=== PATIENT | female | born 1990 | race Caucasian/White ===

== ENCOUNTER 2019-03-06 05:26 | Emergency (ER) | payer BC, OTHER ==
[~2019-03-06] VITALS: Ht 162 cm; Wt 81.0 kg
--- NOTE | 2019-03-06 05:49 | ED Chest Pain ---
General Stated Complaint: CHEST PAIN/SOA Source: patient (HANH RIOS MD) History of Present Illness Date Seen by Provider: Mar 06, 2019 Time Seen by Provider: 05:27 Initial Comments 29-year-old female presenting to the ER room 1 with complaints of chest pain visits been present since last night. She states that she has a pressure and sometimes sharp pain in the middle of her chest going into her back. It was worse this morning when she woke up and has continued when she got to work. She has that last night when she was going to bed but it had settled down enough that she was able to fall asleep. It was still there when she woke up and continued after getting to work. 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 She has not tried taking anything for the pain. Activity seemed to be making the pain worse. She has some mild nausea. She denies having pain like this before. She has a history of hypertension. (HANH RIOS MD) Allergies and Home Medications Allergies Coded Allergies: cetirizine (Verified Allergy, Unknown, 03/06/19) Home Medications Ibuprofen 800 Mg Tablet, 800 MG PO Q8H PRN for PAIN Prescribed by: SHAKA TIDWELL on 03/06/19 0718 Patient Home Medication List Home Medication List Reviewed: Yes (HANH RIOS MD) Review of Systems Review of Systems Constitutional: No chills, No diaphoresis, No fever EENTM: No Symptoms Reported Respiratory: Shortness of Air, SOA With Exertion, SOA at Rest Cardiovascular: Chest Pain (pressure in the middle of her chest with sharp pains going into her back at times) Gastrointestinal: Nausea; Denies Vomiting Genitourinary: No Symptoms Reported Musculoskeletal: no symptoms reported Skin: no symptoms reported Psychiatric/Neurological: Anxiety Endocrine: No Symptoms Reported (HANH RIOS MD) Past Eevovds-Xsrrjq-Aicncp Hx Past Med/Social Hx: Reviewed Nursing Past Med/Soc Hx (HANH RIOS MD) Past Medical History Abdominal, Section, Gallbladder Hypertension Psychosocial: Yes Anxiety, Depression (HANH RIOS MD) Physical Exam Vital Signs Vital Signs - First Documented 03/06/19 05:30 Temp 36.7 Pulse 80 Resp 20 B/P (MAP) 127/101 (110) Pulse Ox 99 O2 Delivery Room Air (SHAKA TIDWELL MD) Vital Signs Capillary Refill : (HANH RIOS MD) Height, Weight, BMI Height: '" Weight: lbs. oz. kg; BMI Method: General Appearance: No Apparent Distress, WD/WN, Obese HEENT: PERRL/EOMI, Normal ENT Inspection, Pharynx Normal Neck: Full Range of Motion, Normal Inspection, Non Tender, Supple; No Carotid Bruit Respiratory: Chest Non Tender, Lungs Clear, Normal Breath Sounds, No Accessory Muscle Use, No Respiratory Distress Cardiovascular: Regular Rate, Rhythm, Normal Peripheral Pulses Gastrointestinal: Normal Bowel Sounds, No Pulsatile Mass, Non Tender, Soft Extremity: Normal Capillary Refill, Normal Inspection, No Pedal Edema, Other (tenderness to the right calf) Neurologic/Psychiatric: Alert, Oriented x3, No Motor/Sensory Deficits Skin: Normal Color, Warm/Dry (HANH RIOS MD) Progress/Results/Core Measures Results/Orders Lab Results Laboratory Tests Test 03/06/19 05:40 Range/Units White Blood Count 7.4 4.3-11.0 10^3/uL Red Blood Count 4.57 4.35-5.85 10^6/uL Hemoglobin 14.2 11.5-16.0 G/DL Hematocrit 45 35-52 % Mean Corpuscular Volume 99 80-99 FL Mean Corpuscular Hemoglobin 31 25-34 PG Mean Corpuscular Hemoglobin Concent 31 L 32-36 G/DL Red Cell Distribution Width 12.2 10.0-14.5 % Platelet Count 203 130-400 10^3/uL Mean Platelet Volume 11.5 H 7.4-10.4 FL Neutrophils (%) (Auto) 60 42-75 % Lymphocytes (%) (Auto) 31 12-44 % Monocytes (%) (Auto) 5 0-12 % Eosinophils (%) (Auto) 3 0-10 % Basophils (%) (Auto) 1 0-10 % Neutrophils # (Auto) 4.4 1.8-7.8 X 10^3 Lymphocytes # (Auto) 2.3 1.0-4.0 X 10^3 Monocytes # (Auto) 0.4 0.0-1.0 X 10^3 Eosinophils # (Auto) 0.2 0.0-0.3 10^3/uL Basophils # (Auto) 0.1 0.0-0.1 10^3/uL Sodium Level 138 135-145 MMOL/L Potassium Level 4.1 3.6-5.0 MMOL/L Chloride Level 101 98-107 MMOL/L Carbon Dioxide Level 22 21-32 MMOL/L Anion Gap 15 H 5-14 MMOL/L Blood Urea Nitrogen 11 7-18 MG/DL Creatinine 0.60 0.60-1.30 MG/DL Estimat Glomerular Filtration Rate > 60 BUN/Creatinine Ratio 18 Glucose Level 106 H 70-105 MG/DL Calcium Level 9.1 8.5-10.1 MG/DL Corrected Calcium 9.2 8.5-10.1 MG/DL Magnesium Level 2.1 1.6-2.4 MG/DL Total Bilirubin 0.5 0.1-1.0 MG/DL Aspartate Amino Transf (AST/SGOT) 23 5-34 U/L Alanine Aminotransferase (ALT/SGPT) 16 0-55 U/L Alkaline Phosphatase 70 40-136 U/L Troponin I < 0.30 <0.30 NG/ML Total Protein 7.1 6.4-8.2 GM/DL Albumin 3.9 3.2-4.5 GM/DL Lipase 19 8-78 U/L (SHAKA TIDWELL MD) My Orders Orders - SHAKA TIDWELL MD Fibrin Degradation Products (03/06/19 06:07) Ketorolac Injection (Toradol Injection) (03/06/19 06:30) Ondansetron Oral Dissolve Tab (Zofran (03/06/19 06:30) Ondansetron Oral Dissolve Tab (Zofran (03/06/19 06:26) Ondansetron Oral Dissolve Tab (Zofran (03/06/19 06:34) (SHAKA TIDWELL MD) Medications Given in ED Current Medications Medications Dose Ordered Sig/Joy Route Start Time Stop Time Status Last Admin Dose Admin Ketorolac Tromethamine 60 mg ONCE ONCE IM 03/06/19 06:30 03/06/19 06:32 DC 03/06/19 06:42 60 MG (SHAKA TIDWELL MD) Vital Signs/I&O 03/06/19 05:30 Temp 36.7 Pulse 80 Resp 20 B/P (MAP) 127/101 (110) Pulse Ox 99 O2 Delivery Room Air (SHAKA TIDWELL MD) Progress Progress Note : Time: 05:26 Progress Note Obtain blood work as well as electrocardiogram and chest x-ray to evaluate from a cardiac standpoint. Patient denies any risk factors for blood clots such as long travel, recent surgery, or previous blood clots. She does have some pain in her right calf and does have an implanted contraceptive in her arm. Try Zofran for nausea, Aspirin 324 mg for chest pain, Will try a 1/2 inch of nitro paste for her pain as well. Care passed to Dr. Tidwell at 0600 for further e valuation and review of testing and to determine final disposition. (HANH RIOS MD) Progress Note : Progress Note 06:00 Dr Tidwell all above appreciated 29 yo female with several hrs of central cp rad to back no hx cardiac or pulmonary no fever or cough no fall or injury no abd pain denies sx's typical of GERD pt claims SOB but no objective indication of such VS normal pt with flat affect, whispers no apparent distress exam normal except for presence of chest wall tenderness EKG is normal sinus @68 will give toradol for pain, awaiting work up to exclude serous etiology CXR is normal Hb 14.2 WBC7,400 CMP lipase troponin all neg/normal after multiple attempts, staff not able to get coag tube to check d-dimer pt, however, has not clinically demonstrated any objective signs to suggest PE, feel it unlikely toradol IM was somewhat helpful, pt has chest wall tenderness to palp, improved O2 sats 99-100 on room air, with NO evidence of resp difficulty (SHAKA TIDWELL MD) Initial ECG Impression Date: Mar 06, 2019 Initial ECG Impression Time: 05:29 Initial ECG Rate: 68 Initial ECG Rhythm: Normal Sinus Initial ECG Comparisson: No Previous ECG Available Comment Sinus rhythm with a heart rate of 68 bpm. UT interval 152 ms with a QT interval of 416 ms and a QT corrected interval 443 ms. There is no acute ST elevation. She has no prior tracing for comparison. (HANH RIOS MD) Transfer of Care Time: 06:00 Care transferred to: Dr. Tidwell (HANH RIOS MD) Departure Impression Primary Impression: Substernal chest pain Additional Impression: Chest wall pain Disposition: 01 HOME, SELF-CARE Condition: Improved Departure-Patient Inst. Decision time for Depature: 07:15 (SHAKA TIDWELL MD) Patient Instructions: Chest Pain (DC) Scripts Ibuprofen (Ibuprofen) 800 Mg Tablet 800 MG PO Q8H PRN for PAIN, #21 TAB 0 Refills Prov: SHAKA TIDWELL MD 03/06/19 Work/School Note: Family Work Note HANH RIOS MD Mar 06, 2019 05:49 SHAKA TIDWELL MD Mar 06, 2019 06:20
[2019-03-06] MEDS ORDERED: ASPIRIN 81 MG CHEW (CHILDREN'S ASA) PO STA (05:50)
[2019-03-06] MEDS ORDERED: NITROGLYCERIN 2% OINT 1 GM UNIT DOSE PACKET TOP STA (05:50)
[2019-03-06] MEDS ORDERED: ONDANSETRON 4 MG/2 ML (SDV) Z0FRAN IVP STA (05:50)
[2019-03-06] MEDS ORDERED: KETOROLAC 30 MG/ML VIAL IVP ONE (06:15)
[2019-03-06] MEDS ORDERED: ONDANSETRON 4 MG (ZOFRAN) ORAL DISSOLVE TAB ONE (06:26)
[2019-03-06] MEDS ORDERED: ONDANSETRON 4 MG (ZOFRAN) ORAL DISSOLVE TAB PO STA ×2 (06:30→06:34)
[2019-03-06] MEDS ORDERED: KETOROLAC 60 MG/2 ML VIAL IM ONE (06:30)
[2019-03-06 06:43] LABS: HEMATOCRIT 45 % (35-52); HEMOGLOBIN 14.2 G/DL (11.5-16.0); MEAN CORPUSCULAR HEMOGLOBIN 31 PG (25-34); MEAN CORPUSCULAR HGB CONC 31 G/DL (32-36); MEAN CORPUSCULAR VOLUME 99 FL (80-99); RED CELL DISTRIBUTION WIDTH 12.2 % (10.0-14.5); WHITE BLOOD COUNT 7.4 10^3/uL (4.3-11.0)
[2019-03-06 06:44] LABS: BASOPHILS # (AUTO) 0.1 10^3/uL (0.0-0.1); BASOPHILS % (AUTO) 1 % (0-10); EOSINOPHILS # (AUTO) 0.2 10^3/uL (0.0-0.3); EOSINOPHILS % (AUTO) 3 % (0-10); LYMPHOCYTES # (AUTO) 2.3 X 10^3 (1.0-4.0); LYMPHOCYTES % (AUTO) 31 % (12-44); MEAN PLATELET VOLUME 11.5 FL (7.4-10.4); MONOCYTES # (AUTO) 0.4 X 10^3 (0.0-1.0); MONOCYTES % (AUTO) 5 % (0-12); NEUTROPHILS # (AUTO) 4.4 X 10^3 (1.8-7.8); NEUTROPHILS % (AUTO) 60 % (42-75); PLATELET COUNT 203 10^3/uL (130-400)
--- NOTE | 2019-03-06 06:49 | Diagnostic Imaging Report ---
INDICATION: Chest pain. No prior examinations are available for comparison. FINDINGS: The heart size, mediastinal configuration, and pulmonary vascularity are within normal limits. There is no pleural effusion, pneumothorax, or pneumonia. The osseous structures are unremarkable. IMPRESSION: No acute cardiopulmonary abnormality. Dictated by: Dictated on workstation # [id number]
[2019-03-06 06:52] LABS: BILIRUBIN,TOTAL 0.5 MG/DL (0.1-1.0); CALCIUM 9.1 MG/DL (8.5-10.1); CARBON DIOXIDE 22 MMOL/L (21-32); CHLORIDE 101 MMOL/L (98-107); MAGNESIUM 2.1 MG/DL (1.6-2.4); POTASSIUM 4.1 MMOL/L (3.6-5.0); SODIUM 138 MMOL/L (135-145); TOTAL PROTEIN 7.1 GM/DL (6.4-8.2)
[2019-03-06 06:55] LABS: GLUCOSE 106 MG/DL (70-105)
[2019-03-06 06:57] LABS: ALANINE AMINOTRANSFERASE 16 U/L (0-55); ALBUMIN 3.9 GM/DL (3.2-4.5); ALKALINE PHOSPHATASE 70 U/L (40-136); BUN/CREATININE RATIO 18; GFR ESTIMATED > 60; LIPASE 19 U/L (8-78)
[2019-03-06] MEDS ORDERED: IBUP-1780 PO (07:18)
[2019-03-06 07:22] VITALS: BP 135/72
== END 2019-03-06 07:24 | disposition home or self-care (01) ==
LOC: ER FS 05:30
DX: R07.2 Precordial pain (principal); I10 Essential (primary) hypertension; F41.9 Anxiety disorder, unspecified; F32.9 Major depressive disorder, single episode, unspecified; Z88.8 Allergy status to other drugs, medicaments and biological substances
CPT/HCPCS: 71045; 80053; 83690; 83735; 83880; 84484; 93005; 93041

== ENCOUNTER 2019-09-08 14:00 | Emergency (ER) | payer BC ==
[~2019-09-08] VITALS: Ht 161 cm; Wt 104.7 kg
[~2019-09-08 14:00] MED LIST: IBUP-1780 PO
--- NOTE | 2019-09-08 14:16 | ED General ---
General Stated Complaint: NECK SWELLING; BLURRY VISION History of Present Illness Date Seen by Provider: Sep 08, 2019 Time Seen by Provider: 14:15 Initial Comments Patient presenting to emergency department for evaluation of migraine headache and right-sided blurry vision has been going on since yesterday. She says that she does have a history of migraine headaches and takes Topamax but has not been helping. She usually gets a shot from her primary care provider that helps however her primary care provider would not see her and she had blurred vision. She denies ever having atypical migraines before in the past with neurologic symptoms. She has nausea and photophobia but no vomiting fevers chills neck stiffness or unilateral weakness numbness or tingling. She is in no obvious distress with normal vital signs. Allergies and Home Medications Allergies Coded Allergies: cetirizine (Verified Allergy, Unknown, 03/06/19) Home Medications Ibuprofen 800 Mg Tablet, 800 MG PO Q8H PRN for PAIN Prescribed by: SHAKA CLEMENTS on 03/06/19 3842 Patient Home Medication List Home Medication List Reviewed: Yes Review of Systems Review of Systems Constitutional: no symptoms reported EENTM: blurred vision Respiratory: no symptoms reported Cardiovascular: no symptoms reported Gastrointestinal: nausea Genitourinary: no symptoms reported Musculoskeletal: no symptoms reported Skin: no symptoms reported Psychiatric/Neurological: Headache All Other Systems Reviewed Negative Unless Noted: Yes Past Wlahuwv-Eqcklo-Ycumnj Hx Patient Social History 2nd Hand Smoke Exposure: No Recent Foreign Travel: No Contact w/Someone Who Travel: No Recent Hopitalizations: No Past Medical History Surgeries: Yes Abdominal, Section, Gallbladder Respiratory: No Cardiac: Yes Hypertension Neurological: No Genitourinary: No Gastrointestinal: No Musculoskeletal: No Endocrine: No HEENT: No Cancer: No Psychosocial: Yes Anxiety, Depression Integumentary: No Blood Disorders: No Physical Exam Vital Signs Vital Signs - First Documented 09/08/19 14:05 Temp 36.4 Pulse 91 Resp 16 B/P (MAP) 132/86 (101) Pulse Ox 96 O2 Delivery Room Air Capillary Refill : Height, Weight, BMI Height: '" Weight: lbs. oz. 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 as Tested Skin: Warm/Dry Progress/Results/Core Measures Suspected Sepsis SIRS Temperature: Pulse: Respiratory Rate: Blood Pressure / Mean: Results/Orders My Orders Orders - DIMITRY CARTER DO Ct Head Wo (09/08/19 14:24) Ketorolac Injection (Toradol Injection) (09/08/19 14:30) Diphenhydramine Injection (Benadryl Inje (09/08/19 14:30) Promethazine Injection (Phenergan Injec (09/08/19 14:30) Medications Given in ED Current Medications Medications Dose Ordered Sig/Joy Route Start Time Stop Time Status Last Admin Dose Admin Diphenhydramine HCl 50 mg ONCE ONCE IM 09/08/19 14:30 09/08/19 14:31 DC 09/08/19 14:39 50 MG Ketorolac Tromethamine 60 mg ONCE ONCE IM 09/08/19 14:30 09/08/19 14:31 DC 09/08/19 14:39 60 MG Promethazine HCl 25 mg ONCE ONCE IM 09/08/19 14:30 09/08/19 14:31 DC 09/08/19 14:39 25 MG Vital Signs/I&O 09/08/19 14:05 Temp 36.4 Pulse 91 Resp 16 B/P (MAP) 132/86 (101) Pulse Ox 96 O2 Delivery Room Air Capillary Refill : Progress Note : Progress Note Patient with likely atypical migraine and I told her I could do the CT scan here but it would not be diagnostic for acute CVA or other acute neurologic condition as she needs to have an MRI and likely other studies done to rule out a stroke. I told her I would need to transfer her to another facility to get this workup done and she refused and she thinks this blurred vision is related to her migraine headache only. She verbalized understanding of my concerns and accepted the risks of and disability including vision loss without proper evaluation. Patient's head CT is negative and her headache almost completely resolved with intramuscular Toradol Benadryl and Phenergan and she says her blurred vision is getting better as well. Given she appears well with normal vital signs benign physical exam workup and is not wanting any further evaluation she'll be discharged in stable condition told to take her Topamax follow with her primary care provider and come back to the ED sooner with worsening pain neurologic changes other general concerns. Patient aware and agreeable with plan and verbalized understanding of the above instructions. Departure Impression Primary Impression: Migraine Additional Impression: Vision changes Disposition: 01 HOME, SELF-CARE Condition: Stable Departure-Patient Inst. Referrals: [facility] ([place]) Primary Care Physician NANDO CLARK APRN (Family) Primary Care Physician Patient Instructions: Migraine Headache (DC) Scripts Ondansetron (Ondansetron Odt) 4 Mg Tab.rapdis 4 MG PO Q6H PRN for NAUSEA/VOMITING-1ST LINE, #10 TAB Prov: DIMITRY CARTER DO 09/08/19 DIMITRY CARTER DO Sep 08, 2019 14:15
[2019-09-08] MEDS ORDERED: diphenhydrAMINE 50 MG/ML INJ (BENADRYL) IM ONE (14:30)
[2019-09-08] MEDS ORDERED: PROMETHAZINE INJ 25 MG/ML (PHENERGAN) AMP IM ONE (14:30)
[2019-09-08] MEDS ORDERED: KETOROLAC 60 MG/2 ML VIAL IM ONE (14:30)
--- NOTE | 2019-09-08 15:24 | Diagnostic Imaging Report ---
PROCEDURE: CT head without contrast. TECHNIQUE: Multiple contiguous axial images were obtained through the brain without the use of intravenous contrast. Auto Exposure Controls were utilized during the CT exam to meet ALARA standards for radiation dose reduction. INDICATION: Blurred vision since this morning as well as headache. COMPARISON: No prior studies are available for comparison. FINDINGS: The ventricles and sulci are within normal limits. No sulcal effacement or midline shift is identified. No acute intra-axial or extra-axial hemorrhage is detected. Cisterns are patent. Visualized paranasal sinuses are clear. IMPRESSION: No acute intracranial process is detected. Dictated by: Dictated on workstation # [id number]
[2019-09-08] MEDS ORDERED: ONDA4TAB11 PO (16:17)
[2019-09-08 16:26] VITALS: BP 111/62
--- OUTSIDE RECORDS SUMMARY | 2019-09-08 16:29 | XMS REPORT | Continuity of Care Document ---
Author Organization Unknown Address Unknown Phone Unavailable Allergies Active Description Code Type Severity Reaction Onset Reported/Identified Relationship to Patient Clinical Status Yes cetirizine [id number] Drug Allerg y Unknown N/A 03/06/2019 Medications There is no data. Problems Date Dx Coded Attending Type Code Diagnosis Diagnosed By 03/06/2019 SHAKA CLEMENTS MD Ot F32. 9 MAJOR DEPRESSIVE DISORDER, SINGLE EPISOD 03/06/2019 SHAKA CLEMENTS MD Ot F41. 9 ANXIETY DISORDER, UNSPECIFIED 03/06/2019 SHAKA CLEMENTS MD Ot I10 ESSENTIAL (PRIMARY) HYPERTENSION 03/06/2019 SHAKA CLEMENTS MD Ot R07. 2 PRECORDIAL PAIN 03/06/2019 SHAKA CLEMENTS MD Ot R07. 9 CHEST PAIN, UNSPECIFIED 03/06/2019 SHAKA CLEMENTS MD Ot Z88. 8 ALLERGY STATUS TO OTH DRUG/MEDS/BIOL SUB 03/10/2019 SHAKA CLEMENTS MD Ot F32. 9 MAJOR DEPRESSIVE DISORDER, SINGLE EPISOD 03/10/2019 SHAKA CLEMENTS MD Ot F41. 9 ANXIETY DISORDER, UNSPECIFIED 03/10/2019 SHAKA CLEMENTS MD Ot I10 ESSENTIAL (PRIMARY) HYPERTENSION 03/10/2019 SHAKA CLEMENTS MD Ot R07. 2 PRECORDIAL PAIN 03/10/2019 SHAKA CLEMENTS MD Ot R07. 9 CHEST PAIN, UNSPECIFIED 03/10/2019 SHAKA CLEMENTS MD Ot Z88. 8 ALLERGY STATUS TO OTH DRUG/MEDS/BIOL SUB 03/19/2019 SHAKA CLEMENTS MD Ot F32. 9 MAJOR DEPRESSIVE DISORDER, SINGLE EPISOD 03/19/2019 SHAKA CLEMENTS MD Ot F41. 9 ANXIETY DISORDER, UNSPECIFIED 03/19/2019 SHAKA CLEMENTS MD Ot I10 ESSENTIAL (PRIMARY) HYPERTENSION 03/19/2019 SHAKA CLEMENTS MD Ot R07. 2 PRECORDIAL PAIN 03/19/2019 SHAKA CLEMENTS MD, Ot R07. 9 CHEST PAIN, UNSPECIFIED 03/19/2019 SHAKA CLEMENTS MD Ot Z88. 8 ALLERGY STATUS TO [facility] DRUG/MEDS/BIOL SUB Procedures There is no data. Results Test Result Range Complete blood count (CBC) with automate d white blood cell (WBC) differential - 03/06/19 05:40 Blood leukocytes automated count (number/volume) 7.4 10*3/uL 4.3-11.0 Blood erythrocytes automated count (number/volume) 4.57 10*6/uL 4.35-5.85 Venous blood hemoglobin measurement (mass/volume) 14.2 g/dL 11.5-16.0 Blood hematocrit (volume fraction) 45 % 35-52 Automated erythrocyte mean corpuscular volume 99 [ foz_us] 80-99 Automated erythrocyte mean corpuscular h emoglobin (mass per erythrocyte) 31 pg 25-34 Automated erythrocyte mean corpuscular h emoglobin concentration measurement (mass/volume) 31 g/dL 32-36 Automated erythrocyte distribution width ratio 12. 2 % 10.0- 14.5 Automated blood platelet count (count/volume) 203 10*3/uL 130-400 Automated blood platelet mean volume measurement 11.5 [foz_us] 7.4-10.4 Automated blood neutrophils/100 leukocytes 60 % 42-75 Automated blood lymphocytes/100 leukocytes 31 % 12-44 Blood monocytes/100 leukocytes 5 % 0-12 Automated blood eosinophils/100 leukocytes 3 % 0-10 Automated blood basophils/100 leukocytes 1 % 0-10 Blood neutrophils automated count (number/volume) 4.4 10*3 1.8-7.8 Blood lymphocytes automated count (number/volume) 2.3 10*3 1.0-4.0 Blood monocytes automated count (number/volume) 0. 4 10*3 0.0-1.0 Automated eosinophil count 0.2 10*3/uL 0 .0-0.3 Automated blood basophil count (count/volume) 0.1 10*3/uL 0.0-0.1 Comprehensive metabolic panel - 03/06/19 05:40 Serum or plasma sodium measurement (moles/volume) 138 mmol/L 135-145 Serum or plasma potassium measurement (moles/volume) 4.1 mmol/L 3.6-5.0 Serum or plasma chloride measurement (moles/volume) 101 mmol/L 98-107 Carbon dioxide 22 mmol/L 21-32 Serum or plasma anion gap determination (moles/volume) 15 mmol/L 5-14 Serum or plasma urea nitrogen measurement (mass/volume ) 11 mg/dL 7-18 Serum or plasma creatinine measurement (mass/volume) 0.60 mg/dL 0.60-1.30 Serum or plasma urea nitrogen/creatinine mass ratio 18 NRG Serum or plasma creatinine measurement w ith calculation of estimated glomerular filtration rate > NRG Serum or plasma glucose measurement (mass/volume) 106 mg/dL 70-105 Serum or plasma calcium measurement (mass/volume) 9.1 mg/dL 8.5-10.1 Serum or plasma total bilirubin measurement (mass/volu me) 0.5 mg/dL 0.1-1.0 Serum or plasma alkaline phosphatase lawanda surement (enzymatic activity/volume) 70 U/L 40-136 Serum or plasma aspartate aminotransfera se measurement (enzymatic activity/volume) 23 U/L 5-34 Serum or plasma alanine aminotransferase measurement (enzymatic activity/volume) 16 U/L 0-55 Serum or plasma protein measurement (mass/volume) 7.1 g/dL 6.4-8.2 Serum or plasma albumin measurement (mass/volume) 3.9 g/dL 3.2-4.5 CALCIUM CORRECTED 9.2 mg/dL 8.5-10.1 Magnesium - 03/06/19 05:40 Magnesium 2.1 mg/dL 1.6-2.4 Lipase - 03/06/19 05:40 Lipase 19 U/L 8-78 Serum or plasma troponin i.cardiac measu rement (mass/volume) - 03/06/19 05:40 Serum or plasma troponin i.cardiac measurement (mass/v olume) < ng/mL <0.30 PROBNP FS - 03/06/19 05:40 PROBNP FS 37.5 pg/mL <75.0 LIPID PANEL - 03/24/19 10:21 CHOLESTEROL, TOTAL 197 mg/dL <200 HDL CHOLESTEROL 42 mg/dL >50 TRIGLYCERIDES 140 mg/dL <150 LDL-CHOLESTEROL 130 mg/dL (calc) NRG CHOL/HDLC RATIO 4.7 (calc) <5.0 NON HDL CHOLESTEROL 155 mg/dL (calc) <13 0 CMP - 03/24/19 10:21 GLUCOSE 85 mg/dL 65-99 UREA NITROGEN (BUN) 14 mg/dL 7-25 CREATININE 0.69 mg/dL 0.50-1.10 eGFR NON-AFR. MEXICAN 116 mL/min/1.73m2 > OR = 60 eGFR 134 mL/min/1.73m2 > OR = 60 BUN/CREATININE RATIO NOT APPLICABLE (calc) 6-22 SODIUM 140 mmol/L 135-146 POTASSIUM 4.2 mmol/L 3.5-5.3 CHLORIDE 105 mmol/L 98-110 CARBON DIOXIDE 26 mmol/L 20-32 CALCIUM 9.6 mg/dL 8.6-10.2 PROTEIN, TOTAL 6.9 g/dL 6.1-8.1 ALBUMIN 4.4 g/dL 3.6-5.1 GLOBULIN 2.5 g/dL (calc) 1.9-3.7 ALBUMIN/GLOBULIN RATIO 1.8 (calc) 1.0-2. 5 BILIRUBIN, TOTAL 0.6 mg/dL 0.2-1.2 ALKALINE PHOSPHATASE 63 U/L 33-115 AST 16 U/L 10-30 ALT 17 U/L 6-29 CBC w/MANUAL DIFF - 05/26/19 10:17 WHITE BLOOD CELL COUNT 9.6 Thousand/uL 3 .8-10.8 RED BLOOD CELL COUNT 4.48 Million/uL 3.8 0-5.10 HEMOGLOBIN 14.0 g/dL 11.7-15.5 HEMATOCRIT 41.7 % 35.0-45.0 MCV 93.1 fL 80.0-100.0 MCH 31.3 pg 27.0-33.0 MCHC 33.6 g/dL 32.0-36.0 RDW 12.9 % 11.0-15.0 PLATELET COUNT 276 Thousand/uL 140-400 MPV 11.4 fL 7.5-12.5 ABSOLUTE NEUTROPHILS 5818 cells/uL 1500- 7800 ABSOLUTE MONOCYTES 970 cells/uL 200-950 ABSOLUTE EOSINOPHILS 192 cells/uL 15-500 ABSOLUTE BASOPHILS 288 cells/uL 0-200 NEUTROPHILS 60.6 % NRG LYMPHOCYTES 23.3 % NRG MONOCYTES 10.1 % NRG EOSINOPHILS 2.0 % NRG BASOPHILS 3.0 % NRG ABSOLUTE BAND NEUTROPHILS 96 cells/uL 0- 750 ABSOLUTE LYMPHOCYTES 2237 cells/uL 850-3 900 BAND NEUTROPHILS 1.0 % NRG PLATELET ESTIMATION ADEQUATE ADEQUATE COMMENT(S) NRG VICKEY SENA VIRUS ANTIBODY PANEL - 09/09 10:17 EBV VIRAL CAPSID AG (VCA) AB (IGM) <36.00 U/mL NRG EBV VIRAL CAPSID AG (VCA) AB (IGG) 79.70 U/mL NRG EBV NUCLEAR AG (EBNA) AB (IGG) 36.90 U/mL NRG INTERPRETATION: NRG Encounters ACCT No. Visit Date/Time Discharge Status Pt. Type Provider Facility Loc./Unit Complaint [id number] 05/26/2019 10:00:00 05/26/2019 23:59: 59 [facility] Outpatient NANDO CLARK [facility] [id number] 05/26/2019 10:00:00 Document Registration [id number] 03/24/2019 10:15:00 Document Registration [id number] 09/08/2019 14:03:00 020 16:26:00 DIS Emergency DIMITRY CARTER DO Via [facility] ER FS NECK SWELLING; BLURRY V SCOTT [id number] 03/06/2019 05:30:00 019 07:24:00 DIS Emergency SHAKA CLEMENTS MD [facility] ER FS CHEST PAIN; SOA
== END 2019-09-08 16:26 | disposition home or self-care (01) ==
LOC: EDUNIT# 14:00 → ER FS 14:03
DX: G43.909 Migraine, unspecified, not intractable, without status migrainosus (principal); Z88.8 Allergy status to other drugs, medicaments and biological substances
CPT/HCPCS: 70450

== ENCOUNTER → 2021-09-06 | Outpatient (CLI) | payer BC ==
[~2021-09-06] MED LIST changes: +CATHETER FLUSH 10 ML SYR IV PRN; +HOLD METFORMIN - RECEIVED CONTRAST 20 ML VIAL IV SCH; +IOHEXOL 350 MG/ML 100 ML (OMNIPAQUE 350) VIAL IV ONE; +NS 100 ML (IVPB) BAG IV ONE; +ONDA4TAB11 PO
--- NOTE | 2021-09-06 18:07 | Diagnostic Imaging Report ---
PROCEDURE: CT neck soft tissue with contrast. TECHNIQUE: Multiple contiguous axial images were obtained through the neck after the administration of contrast. Auto Exposure Controls were utilized during the CT exam to meet ALARA standards for radiation dose reduction. INDICATION: Persistent intermittent right posterior cervical lymph nodes. COMPARISON: No relevant comparison is available. FINDINGS: A metallic marker was placed with the patient's assistance at the site of the patient's reported palpable abnormality. At the site of this metallic marker, there are several tiny non-pathologically enlarged posterior triangle cervical lymph nodes (level V). The largest measures 4 mm in size. There is no dominant enlarged lymph node at this location or findings of an underlying inflammatory process, soft tissue mass, or fluid collection. Note is also made of mildly prominent bilateral level II lymph nodes. The largest on the right is a IIA lymph node with a short axis measurement of 10 mm. The largest on the left is a IIA lymph node with a short axis measurement of 10 mm as well. These demonstrate appropriate morphology by CT. The visualized intracranial contents are unremarkable. There is no abnormal intracranial enhancement. There are no findings of mass effect or hydrocephalus. The visualized portions of the orbits are unremarkable. There is [id number] mucosal thickening in the left maxillary sinus and within the sphenoid sinuses. There is scattered mucosal thickening within the ethmoids and mild mucosal thickening in the right maxillary sinus. There are no air-fluid levels. The middle ears and mastoids are clear. The posterior nasopharynx and oropharynx are appropriately symmetric. The base of the tongue demonstrates no significant asymmetry. There are tiny incidental tonsilloliths. There is no displacement of the parapharyngeal fat planes. There is no abnormal process within the prevertebral or retropharyngeal space. There is no thickening of the epiglottis. The vallecula and piriform sinuses are aerated. Vocal folds and laryngeal cartilage are normal. The parotid, submandibular glands, and thyroid gland are normal. The vascular structures of the neck demonstrate no significant arterial stenosis or jugular vein thrombosis on this nondedicated exam. The visualized portions of the lungs are clear without pneumonia or edema or suspicious nodule or mass. Cervical spine alignment is normal. There is no acute or suspicious osseous abnormality. IMPRESSION: 1. Tiny non-pathologically enlarged level V posterior triangle lymph nodes are present within the posterior right neck at the site of the patient's reported palpable abnormality. 2. Mildly prominent bilateral level IIA cervical lymph nodes. 3. Aerodigestive tract appears appropriately symmetric. 4. No findings of an acute inflammatory process. 5. No suspicious neck soft tissue mass. 6. Paranasal sinus disease as described. Dictated by: Dictated on workstation # [id number]
== END ==
LOC: RAD FS 08:43
PROVIDERS: ATTEND Otolaryngology Otolaryngology/Facial Plastic Surgery
DX: R59.0 Localized enlarged lymph nodes (principal); J32.9 Chronic sinusitis, unspecified
CPT/HCPCS: 70491; Q9967

== ENCOUNTER → 2021-11-28 | Outpatient (CLI) | payer BC ==
[~2021-11-28] MED LIST changes: -CATHETER FLUSH 10 ML SYR IV PRN; -HOLD METFORMIN - RECEIVED CONTRAST 20 ML VIAL IV SCH; -IOHEXOL 350 MG/ML 100 ML (OMNIPAQUE 350) VIAL IV ONE; -NS 100 ML (IVPB) BAG IV ONE
--- NOTE | 2021-11-28 10:55 | Diagnostic Imaging Report ---
PROCEDURE: MR imaging of the brain without contrast. TECHNIQUE: Multiplanar, multisequence MR imaging of the brain was performed without contrast. INDICATION: Chronic migraines. COMPARISON: CT head without contrast 09/08/2019. FINDINGS: No abnormal intracranial signal. No restricted water diffusion. No hemosiderin deposition or evidence of intracranial hemorrhage. Normal morphology including the major midline structures, sella, posterior fossa and cerebellar pontine angle. No hydrocephalus or extra-axial fluid collections. Normal intracranial flow voids. The orbits are negative. Mucosal thickening in the maxillary, ethmoid and sphenoid sinuses. The mastoids are clear. Normal bone marrow signal. IMPRESSION: 1. Normal MRI of the brain without contrast. No acute findings. 2. Mild mucosal thickening in ethmoid, maxillary and sphenoid sinuses. Dictated by: Dictated on workstation # [id number]
== END ==
LOC: RAD 09:30
PROVIDERS: ATTEND Psychiatry & Neurology Neurology
DX: J34.9 Unspecified disorder of nose and nasal sinuses (principal); G43.711 Chronic migraine without aura, intractable, with status migrainosus
CPT/HCPCS: 70551